=== PATIENT | female | born 1950 | race Caucasian/White ===

== ENCOUNTER → 2024-06-26 11:03 | Outpatient (REF) | payer MEDICARE, SELFPAY | LOC: WDC 11:03 | PROVIDERS: ATTENDING PHYSICIAN Internal Medicine | DX: Z12.31 Encounter for screening mammogram for malignant neoplasm of breast (principal) | CPT/HCPCS: 77063; 77067 ==

== ENCOUNTER → 2025-06-27 13:46 | Outpatient (REF) | payer MEDICARE, SELFPAY | LOC: WDC 13:46 | PROVIDERS: ATTENDING PHYSICIAN Internal Medicine | DX: Z12.31 Encounter for screening mammogram for malignant neoplasm of breast (principal) | CPT/HCPCS: 77063; 77067 ==

== ENCOUNTER → 2025-07-31 10:48 | Outpatient (REF) | payer MEDICARE, SELFPAY | LOC: RAD 10:48 | PROVIDERS: ATTENDING PHYSICIAN Internal Medicine | DX: Z78.0 Asymptomatic menopausal state (principal) | CPT/HCPCS: 77080 ==

== ENCOUNTER 2025-09-19 06:20 | Day surgery (SDC) | payer MEDICARE, SELFPAY | END 2025-09-19 10:27 | disposition home or self-care (01) | LOC: GI 06:20 | PROVIDERS: ATTENDING PHYSICIAN Internal Medicine Gastroenterology; FAMILY PHYSICIAN Internal Medicine | DX: Z12.11 Encounter for screening for malignant neoplasm of colon (principal); K57.30 Diverticulosis of large intestine without perforation or abscess without bleeding; K62.89 Other specified diseases of anus and rectum; Z83.719 Family history of colon polyps, unspecified | CPT/HCPCS: G0105 ==